=== PATIENT | female | born 1985 | race Caucasian/White ===

== ENCOUNTER 2018-05-22 08:15 | Day surgery (SDC) | payer OTHER ==
[2018-05-22] MEDS ORDERED: ALPRAZolam 0.5 MG TAB PO ONE (08:28)
[2018-05-22 08:33] VITALS: TEMP 97.9
[2018-05-22 10:04] VITALS: BP 108/59; PULSE 64; RESP 14
--- NOTE | 2018-05-22 13:14 | US ---
ULTRASOUND GUIDED CORE BIOPSY ANTERIOR ABDOMINAL WALL MASS: CLINICAL HISTORY: Subcutaneous mass lower abdomen FINDINGS: The procedure was explained to the patient. The risks, complications, benefits and alternatives were discussed and any questions were answered. Informed consent was obtained. Patient was placed supin e on the ultrasound table and prepped and draped in the usual sterile fashion. Utilizing a 18-gauge core biopsy needle, four passes were made into the subcutaneous mass. Patient was stable throughout the procedure. Pathology is pending. All elements of maximal barrier technique were utilized. IMPRESSION: 1. Successful ultrasound guided core biopsy of a subcutaneous mass.
== END 2018-05-22 09:55 | disposition home or self-care (01) ==
LOC: RADPROMAIN 08:15
PROVIDERS: ATTEND Radiology Diagnostic Radiology
DX: N80.8 Other endometriosis (principal)
CPT/HCPCS: 20206; 76942; 88305; 88342